=== PATIENT | male | born 1985 | race Caucasian/White ===

== ENCOUNTER 2022-10-04 09:43 | Emergency (ER) | payer OTHER ==
[2022-10-04 09:48] VITALS: RESP 18; BMI 26.2
[2022-10-04] MEDS ORDERED: LIDOCAINE 5% TOPICAL PATCH TP ONE (10:37)
[2022-10-04] MEDS ORDERED: ACETAMINOPHEN 500 MG TABLET (FP) PO ONE (10:37)
[2022-10-04] MEDS ORDERED: KETOROLAC TROMETHAMINE 30 MG/1 ML VIAL IM ONE (10:37)
[2022-10-04] MEDS ORDERED: LIDOCAINE 5% TOPICAL PATCH ONE (10:39)
[2022-10-04] MEDS ORDERED: KETOROLAC TROMETHAMINE 30 MG/1 ML VIAL ONE (10:40)
[2022-10-04] MEDS ORDERED: ACETAMINOPHEN 325 MG TABLET (FP) ONE (10:40)
[2022-10-04 12:08] VITALS: BP 120/73; PULSE 51; TEMP 97.9
[2022-10-04] MEDS ORDERED: LIDOCAINE PATCH REMOVAL MC ONE (22:00)
== END 2022-10-04 12:10 | disposition home or self-care (01) ==
LOC: JERFT 09:43
PROC: 3E0233Z Introduction of Anti-inflammatory into Muscle, Percutaneous Approach (ICD-10-PCS; principal; 2022-10-04)
DX: M54.42 Lumbago with sciatica, left side (principal)
CPT/HCPCS: 72131-TC; 99284-25